=== PATIENT | male | born 1990 | race Caucasian/White ===

== ENCOUNTER → 2022-07-13 | Outpatient (CLI) | payer OTHER ==
--- NOTE | 2022-07-13 11:57 | CA ---
Exercise Stress Test Report Name: Tao Michelle Exam Date: 07/13/2022 09:17 Exam Location: [facility] Ht (in): 69 Wt (lb): 195 BSA: 2.04 Ordering Phys: Fermin Alberto MD Referring Phys: Fermin Alberto MD Technologist: Checo Fitzpatrick Age: 31 Gender: M : 1990 Procedure CPT: Indications: R07.9 CHEST PAIN ICD-10 Codes: Patient History: Chest pain, hypertension and Family history of heart disease. Medications: Meds past 24 hrs: Pretest Chest Pain: STRESS TEST Mandeep Protocol Exercise Duration (min:sec): 07:[address] Depressions (mm): Angina Score: Watts Score: Resting HR (bpm): 76 Peak HR (bpm): 165 Resting BP (mmHg): 131 / 96 Peak BP (mmHg): 179 / 79 MPHR: 188 Target HR: 160 % MPHR: 88 METS: 8.9 Total Dose: Peak Dose: Atropine: Double Product: 66292 BP Response: Stress Termination: Reached target heart rate Stress Symptoms: No chest pain or symptoms Stress Summary: ECG ANALYSIS Resting ECG: Normal sinus rhythm normal axis normal intervals Stress ECG: No ST segment depression CONCLUSIONS Average exercise tolerance Negative stress test by EKG criteria Dr. Efrain Lux MD (Electronically Signed) Final Date: 13 July 2022 11:56
== END | disposition home or self-care (01) ==
LOC: RADNMMAIN 08:45
PROVIDERS: ATTEND Family Medicine
DX: R07.9 Chest pain, unspecified (principal)
CPT/HCPCS: 93017

== ENCOUNTER 2022-09-21 10:09 | Emergency (ER) | payer OTHER ==
[2022-09-21 10:19] VITALS: BP 134/84; PULSE 74; RESP 20; TEMP 98.4
--- NOTE | 2022-09-21 10:35 | ED ---
General Adult HPI - General Chief complaint: Extremity Injury, Lower Stated complaint: lt foot pain Time Seen by Provider: 09/21/22 10:26 Source: patient, RN notes reviewed Mode of arrival: ambulatory Limitations: no limitations - History of Present Illness Initial comments: 31-year-old male presents to the emergency department G complaint of l eft foot pain. He notes that the pain started on Monday however has progressively gotten worse. He admits that he slipped down a stair however caught himself. He denies falling, hitting his head, loss of consciousness, any direct trauma to his foot. He has not tried anything for his symptom. He denies any erythema, edema, numbness, tingling. - Related Data Home Medications Medication Instructions Recorded Confirmed Losartan Potassium 100 mg PO DAILY 09/21/22 09/21/22 Propranolol [Inderal] 10 mg PO BID PRN 09/21/22 09/21/22 buPROPion HCL [buPROPion HCL SR] 150 mg PO Q12HR 09/21/22 09/21/22 Allergies Allergy/AdvReac Type Severity Reaction Status Date / Time No Known Allergies Allergy Verified 09/21/22 11:53 Review of Systems ROS Statement: Those systems with pertinent positive or pertinent negative responses have been documented in the HPI. ROS Other: All systems not noted in ROS Statement are negative. Past Medical History Past Medical History: Hypertension History of Any Multi-Drug Resistant Organisms: None Reported Past Surgical History: Orthopedic Surgery Past Psychological History: No Psychological Hx Reported Smoking Status: Never smoker Past Alcohol Use History: None Reported Past Drug Use History: Marijuana General Exam Limitations: no limitations General appearance: alert, in no apparent distress Head exam: Present: atraumatic, normocephalic, normal inspection Eye exam: Present: normal appearance, PERRL, EOMI. Absent: scleral icterus, conjunctival injection, periorbital swelling ENT exam: Present: normal exam, mucous membranes moist Neck exam: Present: normal inspection. Absent: tenderness, meningismus, lymphadenopathy Respiratory exam: Present: normal lung sounds bilaterally. Absent: respiratory distress, wheezes, rales, rhonchi, stridor Cardiovascular Exam: Present: regular rate, normal rhythm, normal heart sounds. Absent: systolic murmur, diastolic murmur, rubs, gallop, clicks GI/Abdominal exam: Present: soft, normal bowel sounds. Absent: distended, tenderness, guarding, rebound, rigid Extremities exam: Present: normal inspection, full ROM, normal capillary refill. Absent: tenderness, pedal edema, joint swelling, calf tenderness Left Ankle exam: Present: normal inspection, full ROM. Absent: tenderness, swelling Foot/Toe exam: Present: normal inspection, full ROM, tenderness (tenderness to lateral/plantar aspect of 5th metatarsal region. No evidence of erythema, edema, ecchymosis. No crepitis. Dt/PT pulses 2+, distal NVI ). Absent: swelling, ecchymosis, deformity, crepitus, erythema Back exam: Present: normal inspection Neurological exam: Present: alert, oriented X3, CN II-XII intact Psychiatric exam: Present: normal affect, normal mood Skin exam: Present: warm, dry, intact, normal color. Absent: rash Course Vital Signs 09/21/22 10:16 Temperature 98.4 F Pulse Rate 74 Respiratory 20 Rate Blood Pressure 134/84 O2 Sat by Pulse 99 Oximetry Medical Decision Making - Medical Decision Making Was pt. sent in by a medical professional or institution (Dr. PA, CAPACITOR INSPECTOR, urgent care, hospital, or group home...) When possible be specific @ -[No] Did you speak to anyone other than the patient for history (EMS, parent, family, police, friend...)? What history was obtained from this source @ -[No] Did you review nursing and triage notes (agree or disagree)? Why? @ -[I reviewed and agree with nursing and triage notes] Were old charts reviewed (outside hosp., previous admission, EMS record, old EKG, old radiological studies, urgent care reports/EKG's, group home records)? Report findings @ -[No old charts were reviewed] Differential Diagnosis (chest pain, altered mental status, abdominal pain women, abdominal pain men, vaginal bleeding, weakness, fever, dyspnea, syncope, heada thang, dizziness, GI bleed, back pain, seizure, CVA, palpatations, mental health)? @ -[not applicable] EKG interpreted by me (3pts min.). @ -[As above] X-rays interpreted by me (1pt min.). @ -negative for acute fracture or osseous process. CT interpreted by me (1pt min.). @ -[None done] U/S interpreted by me (1pt. min.). @ -[None done] What testing was considered but not performed or refused? (CT, X-rays, U/S, labs)? Why? @ -[None] What meds were considered but not given or refused? Why? @ -[None] Did you discuss the management of the patient with other professionals (professionals i.e. DrBakari, PA, CAPACITOR INSPECTOR, lab, RT, psych nurse, social media strategist, real estate lawyer, teacher, enforcement officer, case planner)? Give summary @ -[No] Was smoking cessation discussed for >3mins.? @ -[No] Was critical care preformed (if so, how long)? @ -[No] Were there social determinants of health that impacted care today? How? (Homelessness, low income, unemployed, alcoholism, drug addiction, transportation, low edu. Level, literacy, decrease access to med. care, alf, rehab)? @ -[No] Was there de-escalation of care discussed even if they declined (Discuss DNR or withdrawal of care, Hospice)? DNR status @ -[No] What co-morbidities impacted this encounter? (DM, HTN, Smoking, COPD, CAD, Cancer, CVA, ARF, Chemo, Hep., AIDS, mental health diagnosis, sleep apnea, morbid obesity)? @ -[None] Was patient admitted / discharged? Hospital course, mention meds given and route, prescriptions, significant lab abnormalities, going to OR and other pertinent info. @ -31-year-old male presents to the emergency department for L foot pain. Patient had history and physical performed, physical exam is essentially unremarkable Patient had lab work and imaging ordered and performed while in the emergency department, workup is essentially unremarkable. I discussed the results in detail with the patient, all questions and concerns were addressed. Patient is agreeable with the plan for discharge. The patient was discharged in stable condition with recommended close follow-up with primary care in 1-2 days. He was given a referral for Dr. Bautista orthopedist and recommended to follow up with his office on 7-10 days if the pain does not resolved. He was given toradol with symptomatic relief. Return precautions were discussed. I discussed the case with Dr. Checo CRUZ who agrees with the plan of care. Undiagnosed new problem with uncertain prognosis? @ -[No] Drug Therapy requiring intensive monitoring for toxicity (Heparin, Nitro, Insulin, Cardizem)? @ -[No] Were any procedures done? @ -[No] Diagnosis/symptom? @ -L foot/heel pain - Heel spur Acute, or Chronic, or Acute on Chronic? @ - Acute Uncomplicated (without systemic symptoms) or Complicated (systemic symptoms)? @ -[default] Side effects of treatment? @ -[No] Exacerbation, Progression, or Severe Exacerbation? @ -[No] Poses a threat to life or bodily function? How? (Chest pain, [place], [place], pneumonia, PE, COPD, DKA, ARF, appy, cholecystitis, CVA, Diverticulitis, Homicidal, Suicidal, threat to staff... and all critical care pts) @ -[No] Disposition Clinical Impression: Bone spur of foot Disposition: HOME SELF-CARE Condition: Stable Additional Instructions: Please return to the emergency department if worsening pain, swelling, or redness develops. Is patient prescribed a controlled substance at d/c from ED?: No Referrals: Fermin Alberto MD [Primary Care Provider] - 1-2 days Papito Bautista DO [Doctor of Osteopathic Medicine] - 1-2 days Time of Disposition: 11:52
[2022-09-21] MEDS ORDERED: KETOROLAC 15 MG/ML 1 ML VIAL IM STA (10:37)
--- NOTE | 2022-09-21 11:46 | XR ---
EXAMINATION TYPE: XR foot complete LT DATE OF EXAM: 09/21/2022 10:55 AM INDICATION: Patient age:Male; 31 years old; Reason for study: l foot pain; COMPARISON: None TECHNIQUE: The left foot was examined in the AP, oblique, and lateral projections. FINDINGS: No evidence of any acute osseous pathology. No evidence of soft tissue swelling. Joints are preserve d. No radiopaque foreign body. Calcaneal plantar spurring is present. IMPRESSION: No evidence of acute fracture.
[2022-09-21] MEDS ORDERED: IBUPROFEN 600 MG STARTER PACK 4 TAB BTL PO STA (11:53)
== END 2022-09-21 12:28 | disposition home or self-care (01) ==
LOC: EC 10:09
DX: M77.8 Other enthesopathies, not elsewhere classified (principal); I10 Essential (primary) hypertension; F12.90 Cannabis use, unspecified, uncomplicated; Z79.899 Other long term (current) drug therapy
CPT/HCPCS: 73630; 99283; 96372; J1885

== ENCOUNTER 2022-09-25 15:27 | Emergency (ER) | payer OTHER ==
[2022-09-25 15:32] VITALS: BP 142/91; PULSE 75; RESP 20; TEMP 98.2
[2022-09-25] MEDS ORDERED: KETOROLAC 15 MG/ML 1 ML VIAL IM STA (15:42)
[2022-09-25] MEDS ORDERED: ACET/COD 300 MG/30 MG STARTER PACK 6 TAB BTL PO STA (16:29)
--- NOTE | 2022-09-25 16:31 | ED ---
General Adult HPI - General Chief complaint: Extremity Problem,Nontraumatic Stated complaint: foot pain-revisit Time Seen by Provider: 09/25/22 15:34 Source: patient Mode of arrival: ambulatory Limitations: no limitations - History of Present Illness Initial comments: Patient is a 32-year-old male presenting with chief complaint of foot pain. Patient was here on 09/21 for the same complaint. The left foot is the affected side. Patient states that on the he tripped going up the stairs. X-ray showed no fracture or dislocation, did show bone spur. Patient states that he was given a referral to orthopedics if needed, when he went to the office they said that they were not able to see him. Unclear reason for not being able to be seen. Patient is continuing to have pain. No new injury. He is taking Motrin. No numbness or tingling. He has full range of motion no swelling. No discoloration. - Related Data Home Medications Medication Instructions Recorded Confirmed Losartan Potassium 100 mg PO DAILY 09/21/22 09/25/22 Propranolol [Inderal] 10 mg PO BID PRN 09/21/22 09/25/22 buPROPion HCL [buPROPion HCL SR] 150 mg PO Q12HR 09/21/22 09/25/22 Allergies Allergy/AdvReac Type Severity Reaction Status Date / Time No Known Allergies Allergy Verified 09/25/22 15:31 Review of Systems ROS Statement: Those systems with pertinent positive or pertinent negative responses have been documented in the HPI. ROS Other: All systems not noted in ROS Statement are negative. Past Medical History Past Medical History: Hypertension, Seizure Disorder History of Any Multi-Drug Resistant Organisms: None Reported Past Surgical History: Appendectomy, Orthopedic Surgery Past Psychological History: No Psychological Hx Reported Smoking Status: Never smoker Past Alcohol Use History: None Reported Past Drug Use History: Marijuana General Exam Limitations: no limitations General appearance: alert, in no apparent distress Head exam: Present: atraumatic, normocephalic, normal inspection Eye exam: Present: normal appearance Neck exam: Present: normal inspection, full ROM Left Foot/Toe exam: Present: normal inspection, full ROM, tenderness. Absent: swelling, deformity Neurovascular tendon exam: Present: no vascular compromise. Absent: motor deficit, sensory deficit, tendon deficit Neurological exam: Present: alert, oriented X3, CN II-XII intact Psychiatric exam: Present: normal affect, normal mood Skin exam: Present: warm, dry, intact, normal color. Absent: rash Course Vital Signs 09/25/22 15:29 Temperature 98.2 F Pulse Rate 75 Respiratory 20 Rate Blood Pressure 142/91 O2 Sat by Pulse 98 Oximetry Medical Decision Making - Medical Decision Making Was pt. sent in by a medical professional or institution (ALLISON Agee, BEDSPREAD CUTTER, urgent care, hospital, or [facility]...) When possible be specific @ -[No] Did you speak to anyone other than the patient for history (EMS, parent, family, police, friend...)? What history was obtained from this source @ -[No] Did you review nursing and triage notes (agree or disagree)? Why? @ -[I reviewed and agree with nursing and triage notes] Were old charts reviewed (outside hosp., previous admission, EMS record, old EKG, old radiological studies, urgent care reports/EKG's, [facility] records)? Report findings @ -Previous visit reviewed Differential Diagnosis (chest pain, altered mental status, abdominal pain women, abdominal pain men, vaginal bleeding, weakness, fever, dyspnea, syncope, headache, dizziness, GI bleed, back pain, seizure, CVA, palpatations, mental health)? @ -Differential includes bone spur, strain, sprain, stress fracture EKG interpreted by me (3pts min.). @ -[As above] X-rays interpreted by me (1pt min.). @ -[None done] CT interpreted by me (1pt min.). @ -[None done] U/S interpreted by me (1pt. min.). @ -[None done] What testing was considered but not performed or refused? (CT, X-rays, U/S, labs)? Why? @ -[None] What meds were considered but not given or refused? Why? @ -[None] Did you discuss the management of the patient with other professionals (professionals i.e. ALLISON Agee, BEDSPREAD CUTTER, lab, RT, psych nurse, social welfare clerk, production foreman, teacher, assurance officer, watch caser)? Give summary @ -[No] Was smoking cessation discussed for >3mins.? @ -[No] Was critical care preformed (if so, how long)? @ -[No] Were there social determinants of health that impacted care today? How? (Homelessness, low income, unemployed, alcoholism, drug addiction, transportation, low edu. Level, literacy, decrease access to med. care, senior care, rehab)? @ -[No] Was there de-escalation of care discussed even if they declined (Discuss DNR or withdrawal of care, Hospice)? DNR status @ -[No] What co-morbidities impacted this encounter? (DM, HTN, Smoking, COPD, CAD, Cancer, CVA, ARF, Chemo, Hep., AIDS, mental health diagnosis, sleep apnea, morbid obesity)? @ -[None] Was patient admitted / discharged? Hospital course, mention meds given and route, prescriptions, significant lab abnormalities, going to OR and other pertinent info. @ -Patient is a 32-year-old male presenting with chief complaint of foot pain. Patient was initially seen here on 09/21 for the same left foot pain. Unable to get him with computer technical support specialist. No new injury. He is neurovascularly intact, no redness or swelling. Some tenderness near the site of bone spur seen on previous x-ray. Previous x-ray was negative for fracture or dislocation. Patient is provided with postop shoe and crutches. Provided with referral to the other orthopedic office in town. Educated on supportive treatment with rest, ice, compression, and elevation. Take Motrin and Tylenol as needed. Follow-up with PCP. Report back to ER with any new or worsening symptoms. Discussed return parameters and answered all questions. Patient conveyed verbal understanding and agreed to the plan. I discussed this case in detail with my attending Dr. Wilkinson Undiagnosed new problem with uncertain prognosis? @ -[No] Drug Therapy requiring intensive monitoring for toxicity (Heparin, Nitro, Insulin, Cardizem)? @ -[No] Were any procedures done? @ -[No] Diagnosis/symptom? @ -Bone spur Acute, or Chronic, or Acute on Chronic? @ -Acute Uncomplicated (without systemic symptoms) or Complicated (systemic symptoms)? @ -Uncomplicated Side effects of treatment? @ -[No] Exacerbation, Progression, or Severe Exacerbation? @ -[No] Poses a threat to life or bodily function? How? (Chest pain, [place], [place], pneumonia, PE, COPD, DKA, ARF, appy, cholecystitis, CVA, Diverticulitis, Homicidal, Suicidal, threat to staff... and all critical care pts) @ -[No] Disposition Clinical Impression: Foot pain Disposition: HOME SELF-CARE Condition: Good Additional Instructions: Follow-up with PCP. If needed follow-up with orthopedics. Report back to ER with any new or worsening symptoms. Take Motrin and Tylenol as needed for pain control. Rest, ice, compress, and elevate the foot. Use crutches and walking shoe as needed. Is patient prescribed a controlled substance at d/c from ED?: No Referrals: Fermin Alberto MD [Primary Care Provider] - 1-2 days Sarai Wood DO [Doctor of Osteopathic Medicine] - 1-2 days Time of Disposition: 16:30
== END 2022-09-25 16:48 | disposition home or self-care (01) ==
LOC: EC 15:27
DX: M79.672 Pain in left foot (principal); I10 Essential (primary) hypertension; F12.90 Cannabis use, unspecified, uncomplicated; Z79.899 Other long term (current) drug therapy; W18.40XA Slipping, tripping and stumbling without falling, unspecified, initial encounter
CPT/HCPCS: 99284; 96372; J1885